=== PATIENT | female | born 1955 | race African-American/Black ===

== ENCOUNTER 2023-01-14 05:26 | Day surgery (SDC) | payer OTHER ==
[2023-01-10 14:32] VITALS: BMI 29.3
[2023-01-14] MEDS ORDERED: ACETAMINOPHEN 325 MG TABLET (FP) PO PRN (10:19)
[2023-01-14] MEDS ORDERED: IBUPROFEN 400 MG TABLET (FP) PO PRN (10:19)
[2023-01-14] MEDS ORDERED: ONDANSETRON 4 MG/2 ML VIAL IVPUSH PRN (10:20)
[2023-01-14] MEDS ORDERED: PROPOFOL 20 ML ONE (11:59)
[2023-01-14] MEDS ORDERED: MIDAZOLAM HCL 2 MG/2 ML SINGLE DOSE VIAL ONE (11:59)
[2023-01-14] MEDS ORDERED: oxyCODONE HCL 5 MG TABLET PO PRN (13:02)
[2023-01-14] MEDS ORDERED: PROMETHAZINE HCL 25 MG/1 ML VIAL IVPB PRN (13:02)
[2023-01-14] MEDS ORDERED: LACTATED RINGERS SOLUTION 1,000 ML IV SCH (13:15)
[2023-01-14 13:52] VITALS: RESP 18
[2023-01-14 14:55] VITALS: TEMP 97.2
[2023-01-14 15:35] VITALS: BP 151/83; PULSE 71
== END 2023-01-14 15:35 | disposition home or self-care (01) ==
LOC: JASU-SURG 05:26
PROVIDERS: ATTEND Obstetrics & Gynecology
PROC: 0UB98ZZ Excision of Uterus, Via Natural or Artificial Opening Endoscopic (ICD-10-PCS; principal; 2023-01-14 11:00)
DX: N95.0 Postmenopausal bleeding (principal); D25.0 Submucous leiomyoma of uterus; N84.0 Polyp of corpus uteri
CPT/HCPCS: 86850; 86900; 86901; 94760